=== PATIENT | female | born 2005 | race Two or more races ===

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

== ENCOUNTER 2024-03-25 21:52 | Emergency (ER) | payer OTHER ==
[~2024-03-25] VITALS: Ht 160 cm; Wt 65.8 kg
[~2024-03-25 21:52] MED LIST changes: +ALBU18HF2 INH; +IPRA3AMP23 IH
[2024-03-25] MEDS: ALBUTEROL FS 2.5 MG/3 ML VIAL.NEB NEB ONE (23:01)
[2024-03-25] MEDS: IPRATROPIUM NEB FS 0.5 MG/2.5 ML AMPUL.NEB NEB ONE (23:02)
[2024-03-25] MEDS ORDERED: ALBUTEROL FS 2.5 MG/3 ML VIAL.NEB ONE (23:04)
[2024-03-25] MEDS ORDERED: IPRATROPIUM NEB FS 0.5 MG/2.5 ML AMPUL.NEB ONE (23:04)
[2024-03-25 23:07] VITALS: O2SAT 98
[2024-03-25] MEDS ORDERED: predniSONE 20 MG TABLET ONE (23:07)
[2024-03-25] MEDS: predniSONE 20 MG TABLET PO ONE (23:11)
[2024-03-25 23:22] VITALS: O2SAT 100
[2024-03-26] MEDS ORDERED: ALBU0.633 IH (00:07)
[2024-03-26] MEDS ORDERED: ALBU8.5H8 IH (00:07)
[2024-03-26] MEDS ORDERED: PRED20TA PO (00:07)
[2024-03-26 00:33] VITALS: BP 125/64; TEMP 97.9; O2SAT 100
== END 2024-03-26 00:33 | disposition home or self-care (01) ==
LOC: ER 21:52
DX: J45.901 Unspecified asthma with (acute) exacerbation (principal); Z79.899 Other long term (current) drug therapy; Z20.822 Contact with and (suspected) exposure to COVID-19; Z88.1 Allergy status to other antibiotic agents
CPT/HCPCS: 99285; 87426; 94640; J7512